=== PATIENT | female | born 1975 | race American Indian/Alaskan Native ===

== ENCOUNTER 2019-04-21 13:31 | Emergency (ER) | payer OTHER ==
[2019-04-21 13:47] VITALS: TEMP 98.1
--- NOTE | 2019-04-21 14:09 | ED PDOC ---
Arrival/HPI - General Chief Complaint: Shortness Of Breath Time Seen by Provider: 04/21/19 13:39 Historian: Patient - History of Present Illness Narrative History of Present Illness (Text): 04/21/19 14:05 43 year old female with no significant past medical history, presents to the emergency department complaining of shortness of breath s/p passing out in bed. Patient reports she woke up and began to feel dizzy which she describes as a "room-spinning" sensation and reports she passed out in bed. Patient reports she woke up with a headache, neck pain, and minimal shortness of breath. She denies similar symptoms in the past. Patient is a smoker and an occasional drinker. Patient denies any fever, chills, chest pain, nausea, vomiting, diarrhea, urinary symptoms, back pain, or any other complaints. PMD: Dr. Mackenzie Time/Duration: Other Symptom Onset: Gradual Activities at Onset: Light Context: Home Past Medical History - Provider Review Nursing Documentation Reviewed: Yes - Psychiatric Hx Substance Use: No Family/Social History - Physician Review Nursing Documentation Reviewed: Yes Family/Social History: No Known Family HX Smoking Status: Never Smoked Hx Alcohol Use: No Hx Substance Use: No Allergies/Home Meds Allergies/Adverse Reactions: Allergies No Known Allergies Allergy (Unverified 04/21/19 14:21) Review of Systems - Physician Review All systems were reviewed & negative as marked: Yes - Review of Systems Constitutional: absent: Fevers, Other (chills) Respiratory: SOB Cardiovascular: absent: Chest Pain Gastrointestinal: absent: Diarrhea, Nausea, Vomiting Genitourinary Female: absent: Dysuria, Frequency, Hematuria Musculoskeletal: absent: Back Pain, Neck Pain Neurological: Headache, Dizziness, Other (LOC) Physical Exam - Physical Exam Narrative Physical Exam (Text): Gen: VS reviewed, alert, well developed, well nourished, nontoxic, mild distress. ENT: normal pharynx. Eye: EOMI, PERRL. Neck: no JVD, supple, no adenopathy. CV: regular rate, regular rhythm, no rubs, no murmur, no gallops, S1, S2, pulses equal and strong. Pulm: no distress, clear to auscultation, no wheeze, no rhonchi, breath sounds equal, no rales. Abd: soft, nontender, no guarding, no rebound, no rigidity, normal bowel sounds. Ext: no edema. Skin: good color, no rash, no cyanosis. Psych: responds appropriately to questions, normal affect. Neuro: oriented x 3, CN2-12 intact grossly, motor intact, sensation intact. Vital Signs Reviewed: Yes Vital Signs Temp Pulse Resp BP Pulse Ox 04/21/19 13:44 98.1 F 85 19 152/85 H 100 Temperature: Afebrile Blood Pressure: Normal Pulse: Regular Respiratory Rate: Normal Medical Decision Making ED Course and Treatment: 04/21/19 14:05 Impression: 43 year old female presents complaining of dizziness, headache, neck pain, and shortness of breath that began 2-3 hours ago. Plan: -- CT cervical Spine w/o contrast -- CT head w/o contrast -- EKG -- Chest X-ray -- Labs -- Antivert, IV Fluids -- POC Urine test -- Urinalysis -- Reassess and disposition Progress Notes: 04/21/19 17:54 patient seen for nonspecific dizziness and syncopal event. patient states she still feels a little dizzy but does not describe it as vertigo or near syncopal. admission to the hospital offered to the patient but patient states she would rather go home and she will catch a cab home. patient implored to return for any new or worsening symptoms. will empirically tx for uti. follow up with pcp. - Lab Interpretations I have reviewed the lab results: Yes - RAD Interpretation Narrative RAD Interpretations (Text): 04/21/19 16:28 cxr my read: no focal infiltrate, no cardiomegaly, no ptx Medical Doctor: ED Physician, Radiologist - EKG Interpretation EKG Interpretation (Text): 04/21/19 13:44 EKG shows NSR at 77 BPM with normal QRS, normal axis, normal intervals, no acute ST/T wave abnormalities. Interpreted by me. Interpreted by ED Physician: Yes Type: 12 lead EKG Disposition/Present on Arrival - Present on Arrival Any Indicators Present on Arrival: No History of DVT/PE: No History of Uncontrolled Diabetes: No Urinary Catheter: No History of Decub. Ulcer: No History Surgical Site Infection Following: None - Disposition Have Diagnosis and Disposition been Completed?: Yes Diagnosis: Syncope, UTI (urinary tract infection) Disposition: HOME/ ROUTINE Disposition Time: 17:57 Patient Plan: Discharge Condition: STABLE Discharge Instructions (ExitCare): Syncope (ED), Urinary Tract Infections in Adults Additional Instructions: stay well hydrated (water). please stop smoking. return for any new or worsening symptoms. follow up with a car seat upholsterer -you may need further testing such a ultrasound of your heart. Referrals: Nazanin Mackenzie MD [Primary Care Provider] - Follow up with primary Eduardo Gallardo MD [Staff Provider] - Follow up with primary Forms: [employer] ([place]), WORK NOTE
[2019-04-21] MEDS ORDERED: Sodium Chloride 0.9% 1,000 ML IV SCH (14:30)
[2019-04-21 14:51] LABS: BASO # 0.02 K/mm3 (0.0-2.0); BASO % 0.3 % (0.0-3.0); EOS # 0.2 (0.0-0.7); HEMOGLOBIN 10.3 g/dL (12.0-16.0); LYMPH # 1.1 (1.2-3.4); LYMPH % 15.8 % (22.0-35.0); MEAN CELL VOLUME 76.9 fl (80.0-105.0); MEAN CORPUSCULAR HEMOGLOBIN 23.5 pg (25.0-35.0); MEAN CORPUSCULAR HGB CONC 30.6 g/dl (31.0-37.0); MEAN PLATELET VOLUME 10.1 fl (7.0-11.0); MONO # 0.5 (0.1-0.6); MONO % 8.1 % (1.0-6.0); RBC 4.38 10^6/uL (3.5-6.1); RED CELL DISTRIBUTION WIDTH 17.4 % (11.5-14.5); WHITE BLOOD COUNT 6.6 10^3/uL (4.5-11.0)
[2019-04-21 15:03] LABS: ALB/GLOB RATIO 1.3 (1.1-1.8); ALT/SGPT 21 U/L (7-56); AST/SGOT 24 U/L (14-36); BLOOD UREA NITROGEN 10 mg/dL (7-21); CALCIUM 9.4 mg/dL (8.4-10.5); GFR NON-AFRICAN AMERICAN > 60
[2019-04-21 15:45] LABS: URINE BILIRUBIN NEGATIVE (NEGATIVE); URINE BLOOD NEGATIVE (NEGATIVE); URINE GLUCOSE (UA) NEGATIVE (NEGATIVE); URINE LEUKOCYTE ESTERASE TRACE Leu/uL (NEGATIVE); URINE PROTEIN NEGATIVE mg/dL (<30 mg/dL); URINE UROBILINOGEN 0.2 E.U./dL (<1 E.U./dL)
[2019-04-21 15:46] LABS: URINE APPEARANCE CLEAR (CLEAR)
--- NOTE | 2019-04-21 17:38 | CT ---
Date of service: 04/21/2019 PROCEDURE: CT HEAD WITHOUT CONTRAST. HISTORY: headache COMPARISON: None available. TECHNIQUE: Axial computed tomography images were obtained through the head/brain without intravenous contrast. Supplemental Coronal and Sagittal projections created and reviewed. Radiation dose: Total exam DLP = 805.09 mGy-cm. This CT exam was performed using one or more of the following dose reduction techniques: Automated exposure control, adjustment of the mA and/or kV according to patient size, and/or use of iterative reconstruction technique. FINDINGS: HEMORRHAGE: No intracranial hemorrhage. BRAIN: No mass effect or edema. No atrophy or chronic microvascular ischemic changes. VENTRICLES: Unremarkable. No hydrocephalus. CALVARIUM: Unremarkable. PARANASAL SINUSES: Unremarkable as visualized. No significant inflammatory changes. MASTOID AIR CELLS: Unremarkable as visualized. No inflammatory changes. OTHER FINDINGS: None. IMPRESSION: Normal CT of the Head.
--- NOTE | 2019-04-21 17:43 | CT ---
Date of service: 04/21/2019 PROCEDURE: CT Cervical Spine without contrast HISTORY: Neck Pain. No history of recent/ related trauma provided. COMPARISON: None available. TECHNIQUE: Axial computed tomography images were obtained of the cervical spine without the use of intravenous contrast. Coronal and sagittal reformatted images were created and reviewed. Radiation dose: Total exam DLP = 623.56 mGy-cm. This CT exam was performed using one or more of the following dose reduction techniques: Automated exposure control, adjustment of the mA and/or kV according to patient size, and/or use of iterative reconstruction technique. FINDINGS: VERTEBRAE: No fracture. Reversal of the anatomic lordosis with kyphosis. Degree: Mild. Central proliferative changes emanating from the posterior aspect of the C5 and C6 vertebral bodies impresses upon the spinal canal. No abnormalities with respect to the lateral recesses, neural foramen. No destructive bony lesion. DISCS/SPINAL CANAL/NEURAL FORAMINA: No significant central canal or neural foraminal stenosis. Disc degenerative changes primarily C5-6. PARASPINAL SOFT TISSUES: Unremarkable. OTHER FINDINGS: None. IMPRESSION: No acute findings related to/ accounting for the clinical presentation. Cervical spondylotic change. Elective MRI may be valuable in the assessment of findings at C5 and C6.
--- NOTE | 2019-04-21 17:50 | RAD ---
Date of service: 04/21/2019 HISTORY: Dyspnea. COMPARISON: No prior. FINDINGS: LUNGS: No active pulmonary disease. PLEURA: No significant pleural effusion identified, no pneumothorax apparent. CARDIOVASCULAR: No atherosclerotic calcification present Normal. OSSEOUS STRUCTURES: No significant abnormalities. VISUALIZED UPPER ABDOMEN: Normal. OTHER FINDINGS: None. IMPRESSION: No active disease.
[2019-04-21 18:36] VITALS: BP 135/80; PULSE 70; RESP 18; O2SAT 98
--- NOTE | 2019-04-21 19:38 | CARD ---
APPROVED REPORT Date of service: 04/21/2019 EKG Measurement Heart [id number] AL [id number] [id number] <Conclusion> Normal sinus rhythm Slow R wave progression V1-3 Normal ECG
== END 2019-04-21 18:36 | disposition home or self-care (01) ==
LOC: ED 13:31
DX: R55 Syncope and collapse (principal); N39.0 Urinary tract infection, site not specified
CPT/HCPCS: 70450; 71045; 72125; 80053; 81001; 81025; 85025; 87086; 93005; 99283; J7030